=== PATIENT | female | born 1985 | race Caucasian/White ===

== ENCOUNTER 2017-04-07 00:52 | Emergency (ER) | payer OTHER ==
--- NOTE | 2017-04-07 01:39 | RADIOLOGY REPORT (SQ) ---
EXAM DESCRIPTION: HAND LEFT 2 VIEWS CLINICAL HISTORY: 31 years, Female, Fish hook in hand COMPARISON: None. NUMBER OF VIEWS:2 LIMITATIONS: None. FINDINGS: 0.7 cm curvilinear metallic fishhook at this soft tissues anterior to the left second metacarpal head. No evidence of bone or joint involvement. IMPRESSION: Metallic fishhook in the soft tissues of the left hand.
[2017-04-07] MEDS ORDERED: LIDOCAINE 1%/EPINEPHRINE INJ 20 ML VIAL INJ ONE (02:20)
--- NOTE | 2017-04-07 03:40 | ER Document Report ---
ED General - General Chief Complaint: L hand injury Stated Complaint: HAND INJURY Time Seen by Provider: 04/07/17 03:37 Notes: Patient is a 31-year-old female presents with complaint of a fishhook in her left hand. Patient says it has been there since March 26. She cut off the hook and just left the mignon and the remainder of the hook in her hand. She presents in police custody. She denies any fevers. She is on clindamycin to help prevent infection. Her last tetanus shot was 2014. No other complaints at this time. TRAVEL OUTSIDE OF THE [place] IN LAST 30 DAYS: No - Related Data Allergies/Adverse Reactions: No Known Allergies Allergy (Unverified 04/07/17 00:56) Past Medical History - Social History Smoking Status: Unknown if Ever Smoked Frequency of alcohol use: None Drug Abuse: None Family History: Reviewed & Not Pertinent Patient has suicidal ideation: No Patient has homicidal ideation: No Renal/ Medical History: Denies: Hx Peritoneal Dialysis Review of Systems - Review of Systems Notes: My Normal Review Basic REVIEW OF SYSTEMS: CONSTITUTIONAL : Denies fever, chills, or sweats. Denies recent illness.: MUSCULOSKELETAL: Fishing hook left hand. SKIN: Denies rash or skin lesions. NEUROLOGICAL: Denies sensory or motor loss. ALL OTHER SYSTEMS REVIEWED AND NEGATIVE. Physical Exam - Vital signs Vitals: Temp Pulse Resp BP Pulse Ox 98.5 F 69 14 113/71 97 04/07/17 01:00 04/07/17 01:00 04/07/17 01:00 04/07/17 01:00 04/07/17 01:00 - Notes Notes: General Appearance: Well nourished, alert, cooperative, no acute distress, no obvious discomfort. Vitals: reviewed, See vital signs table. Extremities: strength 5/5 in all extremities, good pulses in all extremities, patient has the metal bar from the fishhook sticking just up through the skin. It is slightly swollen around the area. It is not red or hot. Patient is able flex and extend all fingers and hand without difficulty. Good distal sensation. Skin: warm, dry, appropriate color, no rash Neuro: speech clear, oriented x 3, normal affect, responds appropriately to questions. Course - Re-evaluation Re-evalutation: 04/07/17 07:34 I cleaned patient's and chlorhexidine. I injected around the side of the hook with lidocaine with epi. And made a small incision with a scalpel. After making a small incision with scalpel was able to free up the hook and the mignon of the hook and remove it. The focal Mignon were in the subcutaneous tissue. They were not involved with the tendon. After made incision a small amount of purulent drainage did become expressed. I informed patient she should finish out her course of antibiotics. I placed a Betadine dressing over the wound. I informed her to remove this and 1-2 days. Said after she removes this and she can gently wash with soap and water and then re-bandage the wound daily. To return to ER if she develops redness or swelling, fevers, or any concerns for infection. Dictation of this chart was performed using voice recognition software; therefore, there may be some unintended grammatical errors. - Vital Signs Vital signs: Temp Pulse Resp BP Pulse Ox 98.5 F 74 20 112/69 97 04/07/17 01:00 04/07/17 03:48 04/07/17 03:48 04/07/17 03:48 04/07/17 03:48 Discharge - Discharge Clinical Impression: Fish hook injury of hand Qualifiers: Encounter type: initial encounter Laterality: left Qualified Code(s): S69.92XA - Unspecified injury of left wrist, hand and finger(s), initial encounter Condition: Good Disposition: HOME, SELF-CARE Additional Instructions: Please remove the bandage in 24-48 hours. Please clean gently with soap and water. Please than change the bandage daily. Please return to the ER immediately if you develop redness or swelling to the hand, fevers, or feel that you are developing an infection.
[2017-04-07 03:49] VITALS: BP 112/69
== END 2017-04-07 03:48 | disposition home or self-care (01) ==
LOC: ER 00:52
DX: S61.442A Puncture wound with foreign body of left hand, initial encounter (principal); W45.8XXA Other foreign body or object entering through skin, initial encounter
CPT/HCPCS: 99284; 73120; 10120; J3490